=== PATIENT | male | born 1955 | race African-American/Black ===

== ENCOUNTER 2017-07-14 12:29 | Emergency (ER) | payer MEDICAID ==
[~2017-07-14] VITALS: Ht 182.9 cm; Wt 89.8 kg
[~2017-07-14 12:29] MED LIST: AMIT25TA9 PO; MELA3TAB27 PO
[2017-07-14 14:55] VITALS: BP 129/79
[2017-07-14] MEDS ORDERED: traMADol HCL 50 MG TAB PO ONE (16:00)
== END 2017-07-14 16:54 | disposition home or self-care (01) ==
LOC: ER 12:29
DX: M19.072 Primary osteoarthritis, left ankle and foot (principal); M19.90 Unspecified osteoarthritis, unspecified site; I10 Essential (primary) hypertension; G89.29 Other chronic pain; F17.210 Nicotine dependence, cigarettes, uncomplicated; Z79.899 Other long term (current) drug therapy; Z90.49 Acquired absence of other specified parts of digestive tract
CPT/HCPCS: 73562; 73630

== ENCOUNTER 2017-07-15 16:44 | Emergency (ER) | payer MEDICAID ==
[~2017-07-15] VITALS: Ht 182.9 cm; Wt 95.3 kg
[2017-07-16] MEDS ORDERED: NAPROXEN 500 MG TAB PO ONE (08:00)
[2017-07-16] MEDS ORDERED: HYDROcodone-ACET 5/325MG TAB PO ONE (08:00)
[2017-07-16 09:50] VITALS: BP 156/89
== END 2017-07-16 10:02 | disposition home or self-care (01) ==
LOC: EDBD 16:44 → ER 16:50
DX: S30.0XXA Contusion of lower back and pelvis, initial encounter (principal); I10 Essential (primary) hypertension; G20 Parkinson's disease; F17.210 Nicotine dependence, cigarettes, uncomplicated; Z86.73 Personal history of transient ischemic attack (TIA), and cerebral infarction without residual deficits; W10.1XXA Fall (on)(from) sidewalk curb, initial encounter; Y93.89 Activity, other specified; Y92.89 Other specified places as the place of occurrence of the external cause; Y99.8 Other external cause status
CPT/HCPCS: 72100